=== PATIENT | male | born 1985 | race Caucasian/White ===

== ENCOUNTER 2020-08-01 11:45 | Emergency (ER) | payer BC, SELFPAY ==
--- NOTE | ~2020-08-01 | CT_ITS ---
EXAMINATION: CT CERVICAL SPINE WITHOUT CONTRAST CLINICAL INFORMATION: Neck pain COMPARISON: None TECHNIQUE: CT cervical spine with coronal and sagittal reconstructions. This CT examination was performed using dose optimization techniques as appropriate, variously including the following: *Automated exposure control *Adjustment of mA and/or kV according to patient size (this includes techniques or standardized protocols for targeted exams where dose is matched to indication/reason for exam; i.e. extremities or head) *Use of iterative reconstruction technique DLP: 681 mGy-cm FINDINGS: No abnormal prevertebral soft tissue swelling is seen. No acute cervical spine fracture is noted. There is loss of normal cervical spine lordosis. There is some narrowing at the C7-T1 disc space with marginal spurring and some anterior neural foraminal narrowing from spurring joint of Luschka on the left. Pterygoid plates intact. Visualized mastoid air cells unremarkable. No significant abnormality of the temporomandibular joints appreciated. Lung apices unremarkable. CT/CT cervical spine wo con IMPRESSION: Degenerative change at C7-T1 disc space level with some anterior neural foraminal encroachment on the left from spurring of joints of Luschka. No acute fracture identified.
--- NOTE | ~2020-08-01 | CT_ITS ---
EXAMINATION: CT HEAD WITHOUT CONTRAST CLINICAL INFORMATION: Pain. Fall 2 weeks ago, trauma. COMPARISON: None TECHNIQUE: Contiguous axial imaging was performed from the skull base to vertex without intravenous administration of contrast. Additional 2-D coronal and sagittal reformatted images are generated on the CT workstation and uploaded to PACS. This CT examination was performed using dose optimization techniques as appropriate, variously including the following: *Automated exposure control *Adjustment of mA and/or kV according to patient size (this includes techniques or standardized protocols for targeted exams where dose is matched to indication/reason for exam; i.e. extremities or head) *Use of iterative reconstruction technique DLP: 773 mGy-cm FINDINGS: There is no intracranial hemorrhage, hematoma, or extra-axial fluid collection. The ventricles are normal in size. There is no hydrocephalus, edema, or mass effect. The chapman-white matter differentiation appears symmetric. There is no visible acute territorial infarct or mass lesion. The calvarium appears intact. There is no pneumocephalus or orbital emphysema. The visualized sinuses and middle ears and mastoid air cells show no significant mucosal thickening. There are no air-fluid levels. CT/CT head/brain wo con IMPRESSION: Normal noncontrast CT head.
--- NOTE | ~2020-08-01 | XR_ITS ---
EXAMINATION: XR SHOULDER, LEFT CLINICAL INFORMATION: Left shoulder pain COMPARISON: CT cervical spine 08/01/2020 TECHNIQUE: The left shoulder is imaged in 5 views FINDINGS: There is no fracture or dislocation. The bony density is normal. There is no destructive process. The glenohumeral joint appears normal. The acromioclavicular alignment is normal. There are no visible rotator cuff calcifications. Again, there is levocurvature upper thoracic spine. Left lung apex is clear. XR/XR shoulder LT min 2V IMPRESSION: Unremarkable left shoulder. Levocurvature upper thoracic spine.
[2020-08-01 11:47] VITALS: BP 128/89; PULSE 106; RESP 18; TEMP 36.6; O2SAT 97; BMI 307.4
--- NOTE | 2020-08-01 13:00 | ED.GENADULT ---
HPI - General Adult General Chief complaint: General Medical Stated complaint: neck pain, arm numbness Time Seen by Provider: 08/01/20 14:16 Source: patient Mode of arrival: ambulatory Limitations: no limitations History of Present Illness HPI narrative: Patient states left shoulder pain is worse on movement and felt tight. Patient also states posterior neck pain go into shoulder. Patient denies any chest pain or pain radiating down to her hand. Patient denies any shortness of breath. Patient states having the symptoms for 2 weeks and at times for his having muscle spasm. Patient states he fell weeks ago when unto his right arm, but has no right arm pain. He thinks he did not hit his head at tjat time Related Data Previous Rx's Medication Instructions Recorded cyclobenzaprine 10 mg PO TID PRN #15 tab 08/01/20 naproxen 500 mg PO BID PRN #20 tab 08/01/20 Allergies Allergy/AdvReac Type Severity Reaction Status Date / Time erythromycin base Allergy Intermediate RASH Unverified 12/29/19 18:33 [ERYTHROMYCIN BASE] Erythromycin Allergy Unknown Uncoded 10/11/12 00:00 Review of Systems Review of Systems: Yes all other systems are reviewed and are negative Constitutional: Constitutional: Reports as per HPI and Reports no additional constitutional complaints Eyes: Eyes: Reports as per HPI and Reports no additional eye complaints ENT: Reports system reviewed and no additional complaints, except as documented, Reports as per HPI and Reports neck pain Cardiovascular: Cardiovascular: Reports as per HPI and Reports no additional cardiovascular complaints Respiratory: Respiratory: Reports as per HPI and Reports no additional respiratory complaints Gastrointestinal: Gastrointestinal: Reports as per HPI and Reports no additional gastrointestinal complaints Genitourinary: Genitourinary: Reports no additional male genitourinary complaints and Reports as per HPI Musculoskeletal: Musculoskeletal: Reports no additional musculoskeletal complaints, Reports as per HPI, Reports arthralgias and Reports neck pain Comments: Left shoulder pain Neurologic: Reports system reviewed and no additional complaints, except as documented Psychiatric: Psychiatric: Reports no additional psychiatric complaints and Reports as per HPI [facility] Past Medical History Medical History (Updated 08/01/20 @ 14:38 by TANJA Cade) Discomfort of back Social History Social History Advance Directives: Yes Advance Directives Information Provided: Yes Advance Directives on File: No Physical Exam Vital Signs: Vital Signs: Last Vital Signs Temp 97.8 F 08/01/20 11:47 Pulse 106 H 08/01/20 11:47 Resp 18 08/01/20 11:47 BP 128/89 08/01/20 11:47 Pulse Ox 97 08/01/20 11:47 Body Mass Index 307.4 Const: General: cooperative, healthy appearing, comfortable, no acute distress, well developed, alert, awake and Physically active Orientation/consciousness: patient oriented x3 HENMT: Head: Yes normal to inspection, Yes No palpable skull fracture present, Yes normocephalic, Yes atraumatic, No abrasion, No Acrocyanosis present, No Matias's sign, No contusion, No cranial bruits, No hematoma, No laceration, No occipital foramen tenderness, No palpable skull fracture, No raccoon eyes, No scalp lesion, No scalp tenderness, No Temporal artery tenderness present and No periorbital ecchymosis Eyes: General: appearance normal, both eyes and all related structures Neck: Neck: Yes normal visual inspection, Yes full ROM, Yes no lymphadenopathy, Yes no meningeal signs, Yes trachea midline, Yes supple and Yes tender (Mild posterior cervical pain.) Chest: Chest palpation & inspection: normal inspection of the chest and normal palpation of entire chest wall Resp: Effort & Inspection: normal respiratory effort and able to speak in complete sentences Auscultation: clear to auscultation bilaterally Cardio: Jugular venous distension: no JVD Heart sounds: S1 normal heart sound present and S2 normal heart sound present GI: Inspection: Yes normal to inspection and No abdominal wall ecchymosis Palpation (GI): Soft to palpation, not firm, nontender, no guarding and not rigid : General: No CVA tenderness and Yes no CVA tenderness Back/Spine/Pelvis: Back: no CVA tenderness, No CVA tenderness and No back tenderness Skin: General skin exam: no rashes or lesions noted and elasticity normal Neuro: General: patient oriented x3, no meningeal signs and CN's II-XI intact bilaterally Cranial nerves: Yes CN's II-XII intact bilaterally Extrem: Other: positive for Left shoulder pain on range of motion. Positive bone tenderness on palpation on shoulder. Left upper extremity negative for any swelling, redness, mass on palpation, coldness, or blue discoloration of fingers. Left upper extremity pulses exam intact. Nerve exam of upper left extremity tach. General: Yes normal to inspection and Yes full ROM Psych: Appearance: grossly normal, well kempt and not disheveled Course Course Course Narrative: Patient for shoulder x-ray and neck CT. Rule out fracture or any cervical radiculopathy. Reevaluation(s) Reevaluation #1: head CT normal. Cervical spine shows signs of C7-T1 arthritis of the neck. Shoulder x-ray negative for fracture. Medical Decision Making MDM Narrative Medical decision making narrative: Cervical radiculopathy Discharge Plan Discharge Clinical Impression: Cervical radiculopathy Patient Disposition: Home, Self-Care Instructions: Cervical Radiculopathy (ED) Additional Instructions: Return to the ED immediately for worsening neck pain, numbness/tingling of upper extremities, chest pain, shortness of breath, headache, dizziness, fever, chills, swelling of upper extremities, or any other concerning symptoms. 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 ) Stand Alone Forms: Work/School Release Interventions: ED Discharge Assessment Last Done: 08/01/20 14:58 Discharge Date/Time: 08/01/20 14:59 Print Language: Latvian
[2020-08-01] MEDS: Acetaminophen 325 MG TABLET 650 MG PO (13:39)
[2020-08-01] MEDS: Cyclobenzaprine HCl 5 MG TABLET PO (13:39)
[2020-08-01] MEDS: Ketorolac Tromethamine 30 MG/ML VIAL IM (14:42)
== END 2020-08-01 14:59 | disposition home or self-care (01) ==
PROVIDERS: Emergency Provider Emergency Medicine; PCP Internal Medicine
DX: M54.12 Radiculopathy, cervical region (principal); M54.2 Cervicalgia
CPT/HCPCS: 70450; 72125; 73030; 96372; 99283; 99284; J1885